=== PATIENT | male | born 1995 | race Hispanic/Latino ===

== ENCOUNTER 2017-09-18 05:09 | Emergency (ER) | payer MEDICAID ==
[2017-09-18] MEDS ORDERED: ACETAMINOPHEN 325 MG TAB ONE (05:36)
== END 2017-09-18 06:51 | disposition home or self-care (01) ==
LOC: EDH 05:09
DX: S06.0X9A Concussion with loss of consciousness of unspecified duration, initial encounter (principal); S01.81XA Laceration without foreign body of other part of head, initial encounter; Y08.89XA Assault by other specified means, initial encounter; Y93.89 Activity, other specified; Y92.89 Other specified places as the place of occurrence of the external cause; Y99.8 Other external cause status
CPT/HCPCS: 70450; 72125

== ENCOUNTER 2018-02-15 22:57 | Emergency (ER) | payer MEDICAID ==
[2018-02-15] MEDS ORDERED: ACETAMINOPHEN EXTRA STRENGTH 500 MG TABLET ONE (23:26)
[2018-02-15] MEDS ORDERED: CEFTRIAXONE SODIUM 1 GM ONE (23:26)
[2018-02-15] MEDS ORDERED: LIDOCAINE HCL-MPF 1% 2ML VIAL ONE (23:26)
[2018-02-15] MEDS ORDERED: DEXAMETHASONE SOD PHOSPHATE 10MG/ML 1ML VIAL ONE (23:52)
== END 2018-02-16 00:06 | disposition home or self-care (01) ==
LOC: EDH 22:57
DX: J03.90 Acute tonsillitis, unspecified (principal); R50.9 Fever, unspecified
CPT/HCPCS: 87880; 96372 ×2; 99284; J0696; J1100; J3490

== ENCOUNTER 2019-04-26 11:26 | Emergency (ER) | payer MEDICAID, OTHER | END 2019-04-26 12:02 | disposition home or self-care (01) | LOC: EDH 11:26 | DX: J02.9 Acute pharyngitis, unspecified (principal); R11.2 Nausea with vomiting, unspecified ==

== ENCOUNTER 2019-07-20 10:30 | Emergency (ER) | payer SELFPAY ==
[2019-07-20] MEDS ORDERED: LIDOCAINE 5% TOPICAL PATCH TP ONE (10:40)
[2019-07-20] MEDS ORDERED: KETOROLAC TROMETHAMINE 60 MG/2 ML VIAL ONE (10:40)
[2019-07-20] MEDS ORDERED: DIAZEPAM 5 MG TABLET ONE (10:41)
== END 2019-07-20 11:32 | disposition home or self-care (01) ==
LOC: EDH 10:30
DX: M62.838 Other muscle spasm (principal); M54.2 Cervicalgia
CPT/HCPCS: 96372; 99283; J1885

== ENCOUNTER 2019-07-27 08:55 | Emergency (ER) | payer SELFPAY ==
[2019-07-27] MEDS ORDERED: KETOROLAC TROMETHAMINE 60 MG/2 ML VIAL ONE (09:23)
== END 2019-07-27 10:06 | disposition home or self-care (01) ==
LOC: EDH 08:55
DX: M43.6 Torticollis (principal)
CPT/HCPCS: 72040; 96372; 99284; J1885

== ENCOUNTER 2020-11-04 21:27 | Emergency (ER) | payer OTHER ==
[2020-11-04] MEDS ORDERED: CLINDAMYCIN HCL 150 MG CAP ONE (21:43)
[2020-11-04] MEDS ORDERED: HYDROCODONE/ACETAMINOPHEN 10/325 MG TAB ONE (21:43)
== END 2020-11-04 21:55 | disposition home or self-care (01) ==
LOC: EDH 21:27
DX: L73.9 Follicular disorder, unspecified (principal)

== ENCOUNTER 2021-05-29 17:12 | Emergency (ER) | payer SELFPAY ==
[~2021-05-29] VITALS: Ht 162.6 cm; Wt 61.7 kg
[2021-05-29 17:16] VITALS: BP 122/81
[2021-05-29 19:22] LABS: APPEARANCE,URINE Turbid (CLEAR); BILIRUBIN,URINE Negative (NEGATIVE); COLOR,URINE Yellow (YELLOW); GLUCOSE, URINE (UA) Negative (NEGATIVE); KETONES,URINE 40 mg/dL (NEGATIVE); LEUKOCYTE ESTERASE ,URINE Large (NEGATIVE); NITRATE,URINE Negative (NEGATIVE); OCCULT BLOOD,URINE Moderate (NEGATIVE); PH,URINE 5.5 (5.0-8.0); PROTEIN,URINE Trace mg/dL (NEGATIVE)
[2021-05-29 19:34] LABS: BACTERIA,URINE Few /HPF (None Seen); MUCUS,URINE Moderate LPF (None Seen); SQUAMOUS EPITHELIAL CELL,UR 0-2 /HPF (0-2); WBC,URINE 26-50 /HPF (0-1)
[2021-05-29] MEDS ORDERED: CEPH500B PO (19:53)
[2021-05-29] MEDS ORDERED: LIDOCAINE HCL-MPF 1% 2ML VIAL ONE (19:57)
[2021-05-29] MEDS ORDERED: CEFTRIAXONE 500MG VIAL IV ONE (20:00)
[2021-05-29] MEDS ORDERED: AZITHROMYCIN 250 MG TABLET PO ONE (20:00)
[2021-06-03 00:07] LABS: CHLAMYDIA DNA N.A.AMPLIFY Negative (Negative)
== END 2021-05-29 20:15 | disposition home or self-care (01) ==
LOC: EDH 17:12
DX: A64 Unspecified sexually transmitted disease (principal); R30.0 Dysuria
CPT/HCPCS: 81001; 87088; 87486; 87797; 96374; 99283; J0696; J3490

== ENCOUNTER 2021-10-14 10:56 | Emergency (ER) | payer OTHER ==
[~2021-10-14] VITALS: Ht 172.7 cm; Wt 70.8 kg
[~2021-10-14 10:56] MED LIST: CEPH500B PO
[2021-10-14 11:01] VITALS: BP 110/76
[2021-10-14 15:04] LABS: BASOPHILS % (AUTO) 0.5 % (0.0-5.0); EOSINOPHILS % (AUTO) 1.7 % (0.0-8.0); LYMPHOCYTES % (AUTO) 32.5 % (21.0-51.0); MEAN CORPUSCULAR HEMOGLOBIN 30.1 pg (27.0-33.0); MEAN CORPUSCULAR HGB CONC 34.3 g/dL (32.0-36.0); MEAN CORPUSCULAR VOLUME 87.8 fL (79-99); MONOCYTES % (AUTO) 9.8 % (3.0-13.0); NEUTROPHILS % (AUTO) 55.2 % (40.0-77.0); PLATELET COUNT (AUTO) 203 K/uL (130-400); RED BLOOD CELL COUNT(AUTO) 5.81 MIL/uL (4.50-6.20); RED CELL DISTRIBUTION WIDTH 12.5 % (11.0-15.5); WHITE BLOOD COUNT (AUTO) 6.4 K/uL (4.8-10.8)
[2021-10-14 15:05] LABS: APPEARANCE,URINE CLEAR (CLEAR); BILIRUBIN,URINE SMALL (NEGATIVE); COLOR,URINE YELLOW (YELLOW); GLUCOSE, URINE (UA) NEGATIVE (NEGATIVE); KETONES,URINE >=80 mg/dL (NEGATIVE); LEUKOCYTE ESTERASE ,URINE NEGATIVE (NEGATIVE); NITRATE,URINE NEGATIVE (NEGATIVE); OCCULT BLOOD,URINE TRACE-INTACT (NEGATIVE); PROTEIN,URINE TRACE mg/dL (NEGATIVE)
[2021-10-14] MEDS ORDERED: IOHEXOL 350 MG/ML 100ML INFUS..BTL IV ONE (15:12)
[2021-10-14 15:17] LABS: CREATININE 0.9 mg/dL (0.5-1.5); POTASSIUM 3.7 mmol/L (3.5-5.1)
[2021-10-14 15:19] LABS: BACTERIA,URINE Few /HPF (None Seen); WBC,URINE 0-1 /HPF (0-1)
[2021-10-14 15:20] LABS: MUCUS,URINE Moderate LPF (None Seen); SQUAMOUS EPITHELIAL CELL,UR Few /HPF (0-2)
[2021-10-14 15:24] LABS: ALBUMIN 4.3 g/dL (3.5-5.0); BILIRUBIN,TOTAL 0.7 mg/dL (0.2-1.0); TOTAL PROTEIN, SERUM 8.6 g/dL (6.0-8.3)
== END 2021-10-14 16:45 | disposition home or self-care (01) ==
LOC: EDH 10:56
DX: R10.31 Right lower quadrant pain (principal); R05.9 Cough, unspecified
CPT/HCPCS: 36415; 74177; 80053; 81001; 85025; 99285; Q9967

== ENCOUNTER 2021-12-07 12:33 | Emergency (ER) | payer OTHER ==
[~2021-12-07] VITALS: Ht 162.6 cm; Wt 63.5 kg
[2021-12-07] MEDS ORDERED: TETRACAINE HCL 0.5% 4 ML OPHTH SOLN ONE (13:41)
[2021-12-07] MEDS ORDERED: NA BORATE/BORIC AC/H2O/NACL 120 ML OPHTH IRRIG SOLN ONE (13:42)
[2021-12-07] MEDS ORDERED: FLUORESCEIN SODIUM 1 STRIP STRIP ONE (13:43)
[2021-12-07] MEDS ORDERED: ERYT1OIN7 OP (13:58)
[2021-12-07 14:00] VITALS: BP 128/76
[2021-12-07] MEDS ORDERED: FLUORESCEIN SODIUM 1 STRIP STRIP OP SCH (14:00)
[2021-12-07] MEDS ORDERED: TETRACAINE HCL 0.5% 4 ML OPHTH SOLN OP SCH (14:00)
[2021-12-07] MEDS ORDERED: ERYTHROMYCIN BASE 0.5% OPHTH OINT 1 GM TUBE OU SCH (14:00)
[2021-12-07] MEDS ORDERED: ERYTHROMYCIN BASE 0.5% OPHTH OINT 1 GM TUBE ONE (14:15)
== END 2021-12-07 14:25 | disposition home or self-care (01) ==
LOC: EDH 12:33
DX: H10.31 Unspecified acute conjunctivitis, right eye (principal)

== ENCOUNTER 2022-08-29 07:49 | Inpatient (IN) | payer OTHER ==
[2022-08-29] VITALS (21 sets, daily range): BP systolic 107–145; BP diastolic 63–97
[~2022-08-29] VITALS: Ht 170.2 cm; Wt 72.4 kg
[~2022-08-29 07:49] MED LIST changes: +ERYT1OIN7 OP
[2022-08-29 08:26] LABS: BASOPHILS % (AUTO) 0.5 % (0.0-5.0); EOSINOPHILS % (AUTO) 0.4 % (0.0-8.0); HEMATOCRIT 48.8 % (42-54); LYMPHOCYTES % (AUTO) 10.5 % (21.0-51.0); MEAN CORPUSCULAR HEMOGLOBIN 31.3 pg (27.0-33.0); MEAN CORPUSCULAR HGB CONC 35.7 g/dL (32.0-36.0); MEAN CORPUSCULAR VOLUME 87.8 fL (79-99); MONOCYTES % (AUTO) 5.3 % (3.0-13.0); NEUTROPHILS % (AUTO) 82.8 % (40.0-77.0); PLATELET COUNT (AUTO) 277 K/uL (130-400); RED BLOOD CELL COUNT(AUTO) 5.56 MIL/uL (4.50-6.20); WHITE BLOOD COUNT (AUTO) 19.6 K/uL (4.8-10.8)
[2022-08-29 08:53] LABS: POTASSIUM 3.6 mmol/L (3.5-5.1)
[2022-08-29 08:58] LABS: APPEARANCE,URINE CLEAR (CLEAR); BILIRUBIN,URINE NEGATIVE (NEGATIVE); COLOR,URINE YELLOW (YELLOW); GLUCOSE, URINE (UA) NEGATIVE (NEGATIVE); KETONES,URINE NEGATIVE (NEGATIVE); LEUKOCYTE ESTERASE ,URINE NEGATIVE Leu/uL (NEGATIVE); NITRATE,URINE NEGATIVE (NEGATIVE); PROTEIN,URINE 30 mg/dL (NEGATIVE)
[2022-08-29 08:58] LABS: ALBUMIN 4.4 g/dL (3.5-5.0); TOTAL PROTEIN, SERUM 8.6 g/dL (6.0-8.3)
[2022-08-29] MEDS ORDERED: KETOROLAC 15MG/ML VIAL (15MG/ML) IV ONE (09:30)
[2022-08-29] MEDS ORDERED: 0.9%NACL 1000ML 1,000 ML IV ONE ×2 (09:30→10:30)
[2022-08-29 09:39] LABS: BACTERIA,URINE Few /HPF (None Seen); MUCUS,URINE Moderate LPF (None Seen); RBC,URINE 0-1 /HPF (0-1); SQUAMOUS EPITHELIAL CELL,UR 0-2 /HPF (0-2); WBC,URINE 0-1 /HPF (0-1)
[2022-08-29] MEDS ORDERED: BUPIVACAINE/PF 0.5% 30ML VIAL ONE (10:03)
[2022-08-29] MEDS ORDERED: ESMOLOL HCL 10 MG/ML 10 ML VIAL ONE (10:10)
[2022-08-29] MEDS ORDERED: ZOSYN 3.375GM +NS 50ML IV ONE (10:30)
[2022-08-29] MEDS ORDERED: ROCURONIUM 10MG/1ML SYR 10 MG/ML ML ONE (11:44)
[2022-08-29] MEDS ORDERED: FENTANYL CITRATE PF 50 MCG/1 ML 2ML VIAL ONE (11:44)
[2022-08-29] MEDS ORDERED: PROPOFOL 10 MG/ML 20ML VIAL IV ONE (11:44)
[2022-08-29] MEDS ORDERED: MIDAZOLAM HCL 1 MG/ML 2ML VIAL ONE (11:44)
[2022-08-29] MEDS ORDERED: SUCCINYLCHOLINE CHLORIDE 20 MG/ML 10 ML VIAL ONE (11:44)
[2022-08-29] MEDS ORDERED: ZOSYN 3.375GM +NS 50ML IV SCH (12:00)
[2022-08-29] MEDS ORDERED: ACETAMINOPHEN 325 MG TAB PO PRN (12:00)
[2022-08-29] MEDS ORDERED: MEPERIDINE-PF 25 MG/ML SYG ONE (12:48)
[2022-08-29] MEDS ORDERED: PHARMACY COMMUNICATION MISC SCH (14:00)
[2022-08-29] MEDS: ONDANSETRON 4MG INJ IVP PRN ×2 (14:33→19:00)
[2022-08-29] MEDS: D5W-1/2 NS/20MEQ KCL 1,000 ML IV SCH (15:50)
[2022-08-29] MEDS: MORPHINE 2 MG SYG IV PRN ×2 (17:41→21:54)
[2022-08-29] MEDS: ZOSYN 3.375GM +NS 50ML IV SCH (19:00)
[2022-08-29] MEDS: FAMOTIDINE 20MG VIAL IV SCH (21:54)
[2022-08-30] VITALS (7 sets, daily range): BP systolic 106–125; BP diastolic 66–79
[2022-08-30] MEDS: ONDANSETRON 4MG INJ IVP PRN ×3 (01:27→23:21)
[2022-08-30] MEDS: MORPHINE 2 MG SYG IV PRN ×3 (01:27→11:34)
[2022-08-30] MEDS: ZOSYN 3.375GM +NS 50ML IV SCH ×3 (03:57→20:38)
[2022-08-30 05:33] LABS: HEMATOCRIT 43.5 % (42-54); MEAN CORPUSCULAR HEMOGLOBIN 30.8 pg (27.0-33.0); MEAN CORPUSCULAR HGB CONC 34.9 g/dL (32.0-36.0); MEAN CORPUSCULAR VOLUME 88.1 fL (79-99); RED BLOOD CELL COUNT(AUTO) 4.94 MIL/uL (4.50-6.20); RED CELL DISTRIBUTION WIDTH 12.2 % (11.0-15.5); WHITE BLOOD COUNT (AUTO) 20.3 K/uL (4.8-10.8)
[2022-08-30] MEDS: FAMOTIDINE 20MG VIAL IV SCH ×2 (09:37→20:01)
[2022-08-30] MEDS: D5W-1/2 NS/20MEQ KCL 1,000 ML IV SCH (09:48)
[2022-08-30] MEDS ORDERED: PHARMACY COMMUNICATION MISC SCH (10:00)
[2022-08-30] MEDS ORDERED: D5W-1/2 NS/20MEQ KCL 1,000 ML IV SCH (10:00)
[2022-08-30] MEDS: METOCLOPRAMIDE 10 MG TABLET PO SCH (17:12)
[2022-08-30] MEDS: KETOROLAC 30MG VIAL (30MG/ML) IM PRN (19:30)
[2022-08-30] MEDS: HYDROCODONE/ACETAMINOPHEN 5/325 MG TAB PO PRN (23:07)
[2022-08-31] MEDS: D5W-1/2 NS/20MEQ KCL 1,000 ML IV SCH ×2 (01:45→14:20)
[2022-08-31 04:41] VITALS: BP 110/68
[2022-08-31 05:19] LABS: BASOPHILS % (AUTO) 0.3 % (0.0-5.0); EOSINOPHILS % (AUTO) 0.3 % (0.0-8.0); HEMATOCRIT 44.9 % (42-54); LYMPHOCYTES % (AUTO) 5.8 % (21.0-51.0); MEAN CORPUSCULAR HEMOGLOBIN 30.7 pg (27.0-33.0); MEAN CORPUSCULAR HGB CONC 35.2 g/dL (32.0-36.0); MEAN CORPUSCULAR VOLUME 87.2 fL (79-99); MONOCYTES % (AUTO) 3.8 % (3.0-13.0); PLATELET COUNT (AUTO) 269 K/uL (130-400); RED BLOOD CELL COUNT(AUTO) 5.15 MIL/uL (4.50-6.20); RED CELL DISTRIBUTION WIDTH 12.4 % (11.0-15.5); WHITE BLOOD COUNT (AUTO) 25.4 K/uL (4.8-10.8)
[2022-08-31] MEDS: ZOSYN 3.375GM +NS 50ML IV SCH ×3 (05:26→20:53)
[2022-08-31] MEDS: ONDANSETRON 4MG INJ IVP PRN ×2 (05:36→12:03)
[2022-08-31] MEDS: METRONIDAZOLE 500MG/100ML BAG 100 ML IVPB SCH ×3 (06:00→22:37)
[2022-08-31 08:00] VITALS: BP 122/86
[2022-08-31] MEDS: METOCLOPRAMIDE 10 MG TABLET PO SCH ×3 (08:01→16:29)
[2022-08-31] MEDS: FAMOTIDINE 20MG VIAL IV SCH ×2 (08:01→20:53)
[2022-08-31] MEDS ORDERED: BISACODYL 10 MG SUPP.RECT RC PRN (11:00)
[2022-08-31 12:00] VITALS: BP 122/87
[2022-08-31] MEDS ORDERED: VANCOMYCIN PROTOCOL PER PHARMACY IV SCH (13:00)
[2022-08-31] MEDS: VANCOMYCIN 1G/250ML KIT 250 ML IV SCH ×2 (14:07→20:56)
[2022-08-31 16:00] VITALS: BP 128/83
[2022-08-31] MEDS: HYDROCODONE/ACETAMINOPHEN 5/325 MG TAB PO PRN (19:42)
[2022-08-31 20:32] VITALS: BP 114/73
[2022-09-01 00:05] VITALS: BP 121/82
[2022-09-01] MEDS: ONDANSETRON 4MG INJ IVP PRN ×3 (02:49→10:51)
[2022-09-01] MEDS: MORPHINE 2 MG SYG IV PRN (02:50)
[2022-09-01] MEDS: D5W-1/2 NS/20MEQ KCL 1,000 ML IV SCH ×2 (03:40→16:59)
[2022-09-01 04:00] VITALS: BP 129/78
[2022-09-01 05:12] LABS: HEMATOCRIT 42.8 % (42-54); MEAN CORPUSCULAR HEMOGLOBIN 30.7 pg (27.0-33.0); MEAN CORPUSCULAR HGB CONC 34.8 g/dL (32.0-36.0); MEAN CORPUSCULAR VOLUME 88.2 fL (79-99); RED BLOOD CELL COUNT(AUTO) 4.85 MIL/uL (4.50-6.20); RED CELL DISTRIBUTION WIDTH 12.2 % (11.0-15.5); WHITE BLOOD COUNT (AUTO) 17.4 K/uL (4.8-10.8)
[2022-09-01 05:29] LABS: ALBUMIN 2.9 g/dL (3.5-5.0); CREATININE 1.1 mg/dL (0.5-1.5); POTASSIUM 3.5 mmol/L (3.5-5.1); TOTAL PROTEIN, SERUM 7.5 g/dL (6.0-8.3)
[2022-09-01] MEDS: METRONIDAZOLE 500MG/100ML BAG 100 ML IVPB SCH ×3 (05:31→21:15)
[2022-09-01] MEDS: ZOSYN 3.375GM +NS 50ML IV SCH ×3 (05:32→21:12)
[2022-09-01 08:00] VITALS: BP 130/100
[2022-09-01] MEDS ORDERED: 0.9% NACL 250ML 250 ML ONE (08:20)
[2022-09-01] MEDS: FAMOTIDINE 20MG VIAL IV SCH ×2 (08:25→21:12)
[2022-09-01] MEDS: VANCOMYCIN 1G/250ML KIT 250 ML IV SCH (08:25)
[2022-09-01] MEDS: METOCLOPRAMIDE 10 MG TABLET PO SCH ×3 (08:25→17:00)
[2022-09-01] MEDS: KETOROLAC 30MG VIAL (30MG/ML) IM PRN ×2 (10:51→22:01)
[2022-09-01] MEDS ORDERED: BISACODYL 10 MG SUPP.RECT RC PRN (11:00)
[2022-09-01] MEDS: BISACODYL 10 MG SUPP.RECT RC SCH ×2 (11:00→12:34)
[2022-09-01 12:00] VITALS: BP 127/78
[2022-09-01 16:00] VITALS: BP 120/77
[2022-09-01 21:19] VITALS: BP 126/75
[2022-09-01] MEDS: VANCOMYCIN 1.5 GM/250 ML BAG 250 ML IV SCH (22:00)
[2022-09-02 00:54] VITALS: BP 112/67
[2022-09-02] MEDS: D5W-1/2 NS/20MEQ KCL 1,000 ML IV SCH ×2 (03:05→23:33)
[2022-09-02] MEDS: ZOSYN 3.375GM +NS 50ML IV SCH ×3 (04:29→22:30)
[2022-09-02] MEDS: KETOROLAC 30MG VIAL (30MG/ML) IM PRN (04:30)
[2022-09-02 04:53] VITALS: BP 118/80
[2022-09-02 05:04] LABS: HEMATOCRIT 39.9 % (42-54); MEAN CORPUSCULAR HEMOGLOBIN 30.2 pg (27.0-33.0); MEAN CORPUSCULAR HGB CONC 34.3 g/dL (32.0-36.0); MEAN CORPUSCULAR VOLUME 88.1 fL (79-99); RED BLOOD CELL COUNT(AUTO) 4.53 MIL/uL (4.50-6.20); WHITE BLOOD COUNT (AUTO) 12.8 K/uL (4.8-10.8)
[2022-09-02 05:13] LABS: CREATININE 0.9 mg/dL (0.5-1.5); POTASSIUM 3.1 mmol/L (3.5-5.1)
[2022-09-02] MEDS: METRONIDAZOLE 500MG/100ML BAG 100 ML IVPB SCH ×3 (05:46→22:32)
[2022-09-02 08:00] VITALS: BP 119/73
[2022-09-02] MEDS: METOCLOPRAMIDE 10 MG TABLET PO SCH ×3 (08:45→17:16)
[2022-09-02] MEDS: FAMOTIDINE 20MG VIAL IV SCH ×2 (08:46→21:00)
[2022-09-02] MEDS: VANCOMYCIN 1.5 GM/250 ML BAG 250 ML IV SCH ×2 (10:06→21:00)
[2022-09-02 11:49] VITALS: BP 122/73
[2022-09-02] MEDS ORDERED: BISACODYL 10 MG SUPP.RECT RC SCH (12:30)
[2022-09-02] MEDS: BISACODYL 10 MG SUPP.RECT RC SCH (14:00)
[2022-09-02 16:00] VITALS: BP 126/77
[2022-09-02 20:04] VITALS: BP 119/59
[2022-09-03 00:50] VITALS: BP 119/72
[2022-09-03 04:44] VITALS: BP 118/74
[2022-09-03] MEDS: ZOSYN 3.375GM +NS 50ML IV SCH (06:24)
[2022-09-03] MEDS: METRONIDAZOLE 500MG/100ML BAG 100 ML IVPB SCH (06:24)
[2022-09-03 08:00] VITALS: BP 141/91
[2022-09-03 08:53] LABS: HEMATOCRIT 41.1 % (42-54); MEAN CORPUSCULAR HEMOGLOBIN 30.5 pg (27.0-33.0); MEAN CORPUSCULAR HGB CONC 34.5 g/dL (32.0-36.0); MEAN CORPUSCULAR VOLUME 88.2 fL (79-99); RED BLOOD CELL COUNT(AUTO) 4.66 MIL/uL (4.50-6.20); RED CELL DISTRIBUTION WIDTH 11.9 % (11.0-15.5); WHITE BLOOD COUNT (AUTO) 13.3 K/uL (4.8-10.8)
[2022-09-03] MEDS: BISACODYL 10 MG SUPP.RECT RC SCH (09:00)
[2022-09-03 09:09] LABS: CREATININE 0.9 mg/dL (0.5-1.5); POTASSIUM 3.7 mmol/L (3.5-5.1)
[2022-09-03] MEDS: FAMOTIDINE 20MG VIAL IV SCH (10:22)
[2022-09-03] MEDS: METOCLOPRAMIDE 10 MG TABLET PO SCH (10:22)
[2022-09-03] MEDS ORDERED: ONDA-104 PO (10:26)
[2022-09-03] MEDS ORDERED: AMOX1TAB16 PO (10:26)
[2022-09-03] MEDS: VANCOMYCIN 1.5 GM/250 ML BAG 250 ML IV SCH (10:42)
[2022-09-03 11:14] VITALS: BP 132/74
== END 2022-09-03 15:35 | disposition home or self-care (01) | DRG 343 ==
LOC: EDH 07:49 → OBSVTOIN 07:50 → EDHIP 07:50 → INTOOBSV 07:50 → 3BH 13:51
PROVIDERS: ADMIT Hospitalist; ATTEND Hospitalist
PROC: 0DTJ4ZZ Resection of Appendix, Percutaneous Endoscopic Approach (ICD-10-PCS; principal; 2022-08-29 11:46)
DX: K35.30 Acute appendicitis with localized peritonitis, without perforation or gangrene (principal); K59.00 Constipation, unspecified; F12.90 Cannabis use, unspecified, uncomplicated; Z20.822 Contact with and (suspected) exposure to COVID-19
CPT/HCPCS: 36415; 71045; 74176; 80048; 80053; 80202; 81001; 83690; 83735; 85025; 85027; 87635; C9803; G0378; J0330; J1885; J2175; J2250; J2405; J2543; J2704; J3010; J3370; J3480; J3490; J7030; J7050; J7120

== ENCOUNTER 2025-01-14 09:46 | Emergency (ER) | payer SELFPAY ==
[~2025-01-14] VITALS: Ht 172.7 cm; Wt 77.1 kg
[~2025-01-14 09:46] MED LIST changes: +AMOX1TAB16 PO; -CEPH500B PO; -ERYT1OIN7 OP; +ONDA-104 PO
[2025-01-14 09:47] VITALS: BP 129/90; PULSE 91; RESP 16; TEMP 98.1; O2SAT 100
[2025-01-14] MEDS ORDERED: AMOX1TAB16 PO (10:01)
--- NOTE | 2025-01-14 10:01 | ERN ---
ED Note History of Present Illness Stated Complaint: EAR DISCOMFORT Chief Complaint: Earache Time Seen by MD: 09:55 Dictation: 30-year-old male left ear ache and ringing to the left ear over the past few days, patient reports 6/10 pain no chest pain or shortness of breath no other symptoms. Allergies: Coded Allergies: No Known Allergies (Unverified Allergy, Unknown, 04/26/19) Home Meds Active Scripts Ondansetron HCl (Ondansetron HCl) 4 Mg Tablet, 4 MG PO Q6HPRN PRN for nausea, #12 TAB 0 Refills Prov:MARY VO AGKATIE 09/03/22 Amoxicillin/Potassium Clav (Amox Tr-K Clv 875-125 mg Tab) 1 Each Tablet, 1 EACH PO Q12H, #10 TAB 0 Refills Prov:BENITO VOVONNIE Avila AGPCNP 09/03/22 Past Medical History Past Medical History: No Pertinent History Surgical History: None Social History: Drugs, Lives with family Review of System Dictation Constitutional: Negative for fever,chills, and weight loss Eyes: Negative for injury, pain,redness, and discharge ENT: Per HPI Cardiovascular: Negative for chest pain, palpitations, and edema Respiratory: Negative for shortness of breath, cough, and wheezing, Abdomen/GI: Negative for abdominal pain, nausea, vomiting, diarrhea, and constipation Initial Vital Sign VS Vital Signs Date Time Temp Pulse Resp B/P (MAP) Pulse Ox O2 Delivery O2 Flow Rate FiO2 01/14/25 09:47 98.1 91 16 129/90 100 0 01/14/25 09:47 Room Air* 21 Physical Exam Dictation General: awake, alert, NAD Head/Face: Normocephalic, atraumatic Eyes: PERRL, EOMI, vision at baseline ENT: oral cavity clear, tympanic membrane on left side is bulging with fluid behind the eardrum Neck: Trachea midline, supple, no nuchal rigidity Cardiovascular: RRR, normal S1/S2, No MRGs, no JVD Respiratory: CTAB, no respiratory distress, No rales or wheezes Abdomen: Soft, non-tender, non-distended, normal bowel sounds, no guarding or rebound. Skin: Warm, dry, normal turgor, no rash MS/Extremity: Pulses equal, no cyanosis, neurovascular intact, FROM Neuro: COAx4, GCS 15, strength 5/5, CN 2-12 intact, normal cerebellar exam, normal gait, Psych: Normal behavior, mood, and affect normal ED Course ED Course Vital Signs Date Time Temp Pulse Resp B/P (MAP) Pulse Ox O2 Delivery O2 Flow Rate FiO2 01/14/25 09:47 98.1 91 16 129/90 100 Room Air* 0 21 01/14/25 09:47 98.1 91 16 129/90 100 0 Medical Decision Making MDM MDM: Differential diagnosis: Rationale: Tests considered and ordered secondary to shared decision making include: Previous outside records reviewed: Old ER visits. Risk of complication and/or morbidity or mortality of patient management: None Medications-Per medication reconciliation Need for hospitalization: Patient does not meet criteria for hospitalization. Need for emergency major/minor surgery: No There are no social concerns with this patient. Prescription drug management Prescriptions will include symptomatic care Patient's prior external medical records from other ER visits were reviewed by me as indicated. Prior testing and results from previous visits were reviewed. Prior tests were taken into account with medical decision making and resource utilization, independent historian/historians were used to obtain complete medical history. I independently interpreted the test that were performed, results were reviewed by me and considered findings on radiology if ordered. Medical management and examination interpretation discussions were had by me wit h other qualified healthcare professionals as indicated for the patient's care. DX & DISP Disposition: Discharge Departure Impression: Primary Impression: Left otitis media Condition: Stable Scripts Amoxicillin/Potassium Clav (Amox Tr-K Clv 875-125 mg Tab) 875 Mg-125 Mg Tablet 1 EACH PO BID for 5 Days, #10 TAB 0 Refills Prov: AILEEN RODRIGUES MD 01/14/25 Referrals: SELF,REFERRAL (PCP) AILEEN RODRIGUES MD January 14, 2025 10:01
== END 2025-01-14 10:08 | disposition home or self-care (01) ==
LOC: EDH 09:46
DX: H66.92 Otitis media, unspecified, left ear (principal)
CPT/HCPCS: 99283